=== PATIENT | female | born 1985 ===

== ENCOUNTER → 2024-01-04 | Outpatient (CLI) | payer OTHER, BC ==
[2024-01-12 10:18] LABS: HPV HIGH RISK BY TMA Not Detected; HPV SOURCE Cervical/Vag
== END ==
LOC: LAB SHORT 10:30 → LAB 10:30
PROVIDERS: Obstetrics & Gynecology
DX: Z01.419 Encounter for gynecological examination (general) (routine) without abnormal findings (principal)
CPT/HCPCS: 87624; G0123